=== PATIENT | male | born 1970 | race Caucasian/White ===

== ENCOUNTER 2023-02-12 12:40 | Outpatient (CLI) | payer OTHER, SELFPAY | END 2023-02-12 12:41 | disposition home or self-care (01) | LOC: FRMREF 12:40 | PROVIDERS: PCP Physician Assistant Medical; Visit Provider Physician Assistant Medical | DX: Z01.818 Encounter for other preprocedural examination (principal); I10 Essential (primary) hypertension | CPT/HCPCS: 80053 ==

== ENCOUNTER 2023-02-22 06:10 | Day surgery (SDC) | payer OTHER, SELFPAY ==
[2023-02-22] MEDS: BUPIVACAINE 0.5% 30 ML INJECTION (06:13)
[2023-02-22] MEDS: LACTATED RINGERS 1000 ML 1,000 ML 100 ML IV (06:15)
[2023-02-22 06:26] VITALS: BMI 36.4
[2023-02-22 06:31] VITALS: BP 140/106; PULSE 85; RESP 16; TEMP 36.4; O2SAT 94
[2023-02-22] MEDS: SODIUM CHLORIDE 0.9 % (FLUSH) 10 ML SYRINGE IVF (06:56)
[2023-02-22] MEDS: ETHYL CHLORIDE 1 APPLICATION 1 APPLIC TOPICAL (06:57)
[2023-02-22] MEDS: LIDOCAINE 2%-EPI 1:200,000 20 ML TOPICAL (06:59)
--- NOTE | 2023-02-22 07:15 | CRLHL7_ITS ---
For Patients: As a result of the Cures Act, medical imaging exams and procedure reports are released immediately into your electronic medical record. You may view this report before your referring provider. If you have questions, please contact your health care provider. Indication: LEFT FINGER DIP JOINT Arthrodesis Technique: Two fluoroscopic images of the left thumb. Fluoroscopic time 26.3 seconds. Comparison: None Findings/Impression: Fluoroscopic guidance for fusion across the thumb IP joint. Dictated by Ronnie Dominguez MD @ 02/22/2023 8:30:23 AM (Electronically Signed)
--- NOTE | 2023-02-22 07:15 | SUR.PREOP ---
SAME DAY SURGERY LOCAL INJECTION SITE VERIFICATION WAS PERFORMED BY SURGEON/PA AND PATIENT PRIOR TO LOCAL ANESTHETIC BEING INJECTED TO OPERATIVE SITE.[id number] [facility]
[2023-02-22] MEDS: CEFAZOLIN 2 GM in 0.9 % SODIUM CHLORIDE Mini-bag 100 ML IVPB (07:29)
[2023-02-22] MEDS: LIDOCAINE 1% 5 ml (pf) 5 ML VIAL INJECTION (07:35)
--- NOTE | 2023-02-22 08:17 | W.PM.H&PU ---
History & Physical Update History & Physical Update H&P Reviewed and patient assessed: No changes noted
--- NOTE | 2023-02-22 08:17 | PM.ORPRC ---
Procedure Note Date of procedure: 02/22/23 Procedure: PREOPERATIVE DIAGNOSIS: 1. Left index finger DIP joint osteoarthritis, primary, severe with ulnar subluxation and ulnar deviation and associated large osteophytes POSTOPERATIVE DIAGNOSIS: 1. 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 Left index finger DIP joint arthrodesis 2. 10987 - Intraoperative fluoroscopy use and interpretation. 3. Left index finger finger digital block for anesthetic SURGEON: Jake Gallagher MD. ENVIRONMENTAL ENGINEERING MANAGER: Jeff Roland Pac - Of note, an veterinary technician assistant was critical for this case to aid in patient positioning, tissue retraction, limb manipulation/positioning, finger manipulation/control, protection of critical structures, closure, and splinting. ANESTHESIA: Digital block for anesthetic plus MAC IMPLANTS: Synthes partially-threaded headless compression screw (2.0 mm) TOURNIQUET: 25 of digital tourni-cot with excellent capillary refill upon removal. COMPLICATIONS: None evident INDICATIONS: The patient is a pleasant 52-year-old male who has experienced left index finger deformity with angulation, subluxation of the DIP joint, pain, and dysfunction. Additionally, nonoperative management of been tried and failed. Thus surgery was indicated. DESCRIPTION OF PROCEDURE: Following a thorough discussion of risks, benefits, and alternatives consent was obtained and the operative digit(s) was marked. The patient was brought to the operating room and placed supine on the operating table after preoperative digital block was administered by nc in preop holding. 2 g IV Ancef was administered within 1 hour incision preoperatively. Proper time-out was performed identifying proper patient, site, and procedure. The operative extremity/digit was prepped and draped in the appropriate sterile fashion using ChloraPrep. The digit was exsanguinated and the tourniquet utilized on base of the digit. A squared 'C' incision was made on the dorsal aspect of the operative finger DIP joint. Sharp incision down through the skin & subcutaneous tissue allowed identification of the extensor tendon. This was divided transversely. It was tagged for later repair. We elevated the flaps proximally and distally being cautious particularly distally with the germinal matrix. The joint was entered, and effusion evacuated. The collateral ligaments were released with a 15 blade on both sides, and the volar condyles of the middle phalanx were rongeured off. Large dorsal osteophyte were also rongeured off. The calcified cartilage layer was excised with rongeur and high-speed bur creating a cup and cone formation to the middle phalanx and distal phalanx, respectively. This had excellent approximation then of the bony surfaces. Small drill holes were created within the distal phalanx base for bleeding purposes. A 0.8mm guide pin was passed in a antegrade fashion into the distal phalanx and confirmed on C-arm fluoroscopic imaging to be center center position within the phalanx. The pin was then reversed and passed retrograde into the middle phalanx. Again C-arm confirmed the pin to be within the center center position in the middle phalanx. Alignment of the finger was aimed for straight on the PA perspective and slight flexion on the lateral perspective. The screw was measured, and selected. The 1.6 mm drill bit was passed retrograde through the distal phalanx and into the middle phalanx towards the base. The screw was then selected and passed smoothly. It achieved excellent compression holding the arthrodesis site stable. At this stage, a thorough irrigation normal saline was performed. Tourniquet was released. Hemostasis achieved. Closure of the skin flaps performed with 4-0 nylon in interrupted fashion. Dressings were applied and a tube gauze bulky dressing was applied. PLAN: 1. Encourage elevation of the operative extremity. 2. Icing of the fingers and hand/wrist as tolerated/needed 3. Acetaminophen and/or oxycodone as needed for pain control. 4. Follow up with nursing visit in 2 days for wound check/dressing removal and Stax splint application. Then follow-up at the 2 week chad postop PA visit for suture removal. Then at the 6 week chad with myself.
[2023-02-22] MEDS: NEOMYCIN/BACITRACIN/POLYMYXIN B 1 APPLIC TOPICAL (08:18)
[2023-02-22 09:00] VITALS: BP 138/108; PULSE 88; RESP 16; TEMP 36.3; O2SAT 94
--- NOTE | 2023-02-22 09:00 | W.ANESCHARGE ---
Anesthesia Charges Start Date/Time Anesthesia Start Date: 02/22/23 Anesthesia Start Time: 07:15 Stop Date/Time Anesthesia Stop Date: 02/22/23 Anesthesia Stop Time: 08:55
[2023-02-22 09:15] VITALS: BP 140/106; PULSE 88; RESP 16; O2SAT 94
--- NOTE | 2023-02-22 09:44 | SUR.PHASEII ---
Made appointment for Pt to see Dr. Earl for severe sleep apnea on Mar 02 at 2;00 At [facility] explained to pt the need to have this done and he told me he will just cancel the appointment I told him that if could be life threatening He said he understood but doesn't have any vacation time to do it. His S.O. Shraddha was aware also and she said that they will try and work it out.
== END 2023-02-22 09:49 | disposition home or self-care (01) ==
PROVIDERS: PCP Physician Assistant Medical; Visit Provider Orthopaedic Surgery Sports Medicine
PROC: (CPT 26860; principal; 2023-02-22 07:15)
DX: M19.042 Primary osteoarthritis, left hand (principal); M24.842 Other specific joint derangements of left hand, not elsewhere classified; M25.742 Osteophyte, left hand
CPT/HCPCS: 26860; 01820; 73140; 76000; C1713; J0665; J0690; J2405; J2704; J3010; J7120

== ENCOUNTER 2023-03-01 07:31 | Outpatient (CLI) | payer OTHER, SELFPAY | END 2023-03-01 07:32 | disposition home or self-care (01) | LOC: NFLDREF 03-02 22:15 | PROVIDERS: PCP Physician Assistant Medical; Referring Provider Physician Assistant Medical; Visit Provider Physician Assistant Medical | DX: D69.6 Thrombocytopenia, unspecified (principal); Z13.6 Encounter for screening for cardiovascular disorders | CPT/HCPCS: 80061 ==

== ENCOUNTER 2024-03-31 13:20 | Outpatient (CLI) | payer OTHER, SELFPAY | END 2024-03-31 13:21 | disposition home or self-care (01) | LOC: NFLDREF 04-03 06:37 | PROVIDERS: PCP Physician Assistant Medical; Referring Provider Physician Assistant Medical; Visit Provider Physician Assistant Medical | DX: R79.89 Other specified abnormal findings of blood chemistry (principal); E78.5 Hyperlipidemia, unspecified; D69.6 Thrombocytopenia, unspecified; I10 Essential (primary) hypertension; Z12.5 Encounter for screening for malignant neoplasm of prostate; Z13.29 Encounter for screening for other suspected endocrine disorder | CPT/HCPCS: 80053; 80061; 80074; 84443; G0103 ==

== ENCOUNTER 2024-04-07 13:24 | Outpatient (CLI) | payer OTHER, SELFPAY | END 2024-04-07 13:25 | disposition home or self-care (01) | PROVIDERS: PCP Physician Assistant Medical; Visit Provider Physician Assistant Medical | DX: E78.5 Hyperlipidemia, unspecified (principal); R79.89 Other specified abnormal findings of blood chemistry | CPT/HCPCS: 80061; 82607; 82746; 84450; 84460 ==

== ENCOUNTER 2024-04-11 07:02 | Outpatient (CLI) | payer OTHER, SELFPAY ==
--- NOTE | 2024-04-11 07:15 | CRLHL7_ITS ---
For Patients: As a result of the Century Cures Act, medical imaging exams and procedure reports are released immediately into your electronic medical record. You may view this report before your referring provider. If you have questions, please contact your health care provider. INDICATION: ABNORMAL FINDINGS OF BLOOD CHEMISTRY COMPARISON: none TECHNIQUE: Real time serra scale imaging and color Doppler analysis was performed of the right upper quadrant. FINDINGS: The liver measures 23.8 cm. Liver echotexture is diffusely coarsened and increased. There is a normal appearance of the hepatic IVC and proximal abdominal aorta. There is no evidence of ascites. The gallbladder is of normal size and there is no evidence of intraluminal stones or sludge. The gallbladder wall measures 1 mm in thickness. The common bile duct is of normal size and measures 4 mm in diameter at the level of the armando hepatis. The pancreas appears normal. There is no evidence of a stone or hydronephrosis within the right kidney. The right kidney measures 12.7 cm in length. The main portal vein is patent with antegrade flow measuring 16.3 cm/second. Main portal vein measures 11 millimeters. IMPRESSION: Hepatomegaly with moderately severe hepatic steatosis. Dictated by Ronnie Dominguez MD @ 04/13/2024 7:14:08 AM (Electronically Signed)
== END 2024-04-11 07:03 | disposition home or self-care (01) ==
LOC: US 07:03
PROVIDERS: PCP Physician Assistant Medical; Visit Provider Physician Assistant Medical
DX: R79.89 Other specified abnormal findings of blood chemistry (principal); K76.0 Fatty (change of) liver, not elsewhere classified
CPT/HCPCS: 76705

== ENCOUNTER 2024-05-22 14:35 | Outpatient (CLI) | payer OTHER, SELFPAY ==
--- NOTE | 2024-05-22 15:00 | CRLHL7_ITS ---
For Patients: As a result of the Century Cures Act, medical imaging exams and procedure reports are released immediately into your electronic medical record. You may view this report before your referring provider. If you have questions, please contact your health care provider. INDICATION: Hepatomegaly. TECHNIQUE: CT chest, abdomen and pelvis acquired with 120 cc Isovue 370 IV contrast. COMPARISON: Ultrasound 04/11/2024. FINDINGS: CHEST Lungs and pleura: Lungs are clear. No suspicious nodules or infiltrates. No effusions, thickening, or pneumothorax. Heart and vasculature: Heart size is normal. Thoracic aorta and pulmonary artery are normal in caliber. Lymph node/mediastinum: No mediastinal, hilar, or axillary adenopathy. Chest wall: Normal. Bones: Mild/moderate thoracic spondylosis. No suspicious osseous lesion. Old left-sided rib fractures. ABDOMEN AND PELVIS: Liver: Moderate hepatic steatosis mild hepatomegaly. No suspicious hepatic lesion. Gallbladder and bile ducts: Unremarkable. Pancreas: Unremarkable. Spleen: Normal in caliber. No masses. Adrenal glands: Unremarkable. No masses. Kidneys: Right kidney normal. Ectopic, dysplastic pelvic left kidney. GI tract: No bowel obstruction or focal inflammation. Normal appendix. Vasculature: Unremarkable. Mesenteric arteries are patent. Lymph nodes: No lymphadenopathy. Omentum/peritoneum/retroperitoneum/abdominal wall: No masses or infiltration. No free air or significant free fluid. Pelvic organs: Unremarkable. Bones: Lumbar spondylosis IMPRESSION: 1. Hepatomegaly and moderate hepatic steatosis. No suspicious hepatic lesion. 2. Ectopic, dysplastic pelvic left kidney. Normal right kidney. Please note that all CT scans at this facility use dose modulation, iterative reconstruction, and/or weight-based dosing when appropriate to reduce radiation dose to as low as reasonably achievable. Dictated by Jay Matthews MD @ 05/23/2024 7:58:14 AM (Electronically Signed)
== END 2024-05-22 14:36 | disposition home or self-care (01) ==
PROVIDERS: PCP Physician Assistant Medical; Visit Provider Internal Medicine Hematology & Oncology
DX: R16.0 Hepatomegaly, not elsewhere classified (principal); K76.0 Fatty (change of) liver, not elsewhere classified; D69.6 Thrombocytopenia, unspecified
CPT/HCPCS: 71260; 74177; Q9967

== ENCOUNTER 2024-08-21 05:57 | Day surgery (SDC) | payer OTHER, SELFPAY ==
[2024-08-21] VITALS (12 sets, daily range): BP systolic 111–129; BP diastolic 74–85; PULSE 70–92; RESP 16; TEMP 36.4; O2SAT 94–98; BMI 35.2
[2024-08-21] MEDS: LIDOCAINE 1% MDV INJECTION (06:55)
[2024-08-21] MEDS: BUPIVACAINE 0.5% 30 ML INJECTION (06:55)
[2024-08-21] MEDS: ETHYL CHLORIDE 1 APPLICATION 1 APPLIC TOPICAL (06:55)
--- NOTE | 2024-08-21 12:23 | P.ORPRC_ITS ---
Procedure Note Date of procedure: 08/21/24 Procedure: PREOPERATIVE DIAGNOSIS: 1. Left dorsal thumb benign mass, slightly radial to the mid-dorsal line near the IP joint POSTOPERATIVE DIAGNOSIS: 1. Left dorsal thumb benign mass, slightly radial to the mid-dorsal line near the IP joint PROCEDURE: 1. Left dorsal thumb benign mass open excision SURGEON: Jake Gallagher MD. DIRECTOR OF EARLY CHILDHOOD: Jeff Roland PA-C - Of note, an reproductive healthcare assistant was critical for this case to aid in patient positioning, tissue retraction, limb manipulation/positioning, patient safety, & closure. ANESTHESIA: Local anesthetic (50:50 mixture of 1% lidocaine plain and 0.5% marcaine plain) EBL: 5 mL IMPLANTS: None TOURNIQUET: Digital tourni-cot (~20 minutes). COMPLICATIONS: None evident INDICATIONS: The patient is a pleasant 54-year-old male who noted a growth developing over the dorsal aspect of his left thumb near the IP joint just slightly radial to the dorsal midline region. This has progressively enlarged and become somewhat bothersome when he tries to put his hand in a pocket or when he has pressure on this area. This did appear to have benign features, but given his clinical picture and the fact that nonoperative management was unsuccessful, surgery is indicated for open mass excision. DESCRIPTION OF PROCEDURE: Following a thorough discussion of risks, benefits, and alternatives consent was obtained and the operative extremity was marked. The patient was brought to the operating room and placed supine on the operating table. No antibiotics were administered as this was planned to be a local case only. Proper time-out was performed identifying proper patient, site, and procedure. The operative extremity was prepped and draped in the appropriate sterile fashion using ChloraPrep. The limb was exsanguinated and the tourniquet inflated. A longitudinal incision was made overlying the radial edge of the mass extending proximally ~ 2 cm. We then made a transverse limb to this L-shaped incision over the distal aspect of the growth. The skin flap was elevated and extensor tendon was identified. Crossing veins were cauterized. Deep to the flap there appeared to be a small cystic structure just radial to the extensor tendon, which was excised with a combination of 15 blade scalpel, bipolar cautery, and tenotomy scissors. Thereafter, the skin was notably thickened immediately superficial to this same region. Thus, decision was made to ellipse out/excise the dermis over region measuring 1 x 1 cm. The proximal flap that had been created was mobile enough to span the excised tissues gap and allowed direct skin to skin closure/primary closure. The tissue was sent for permanent pathology. Thereafter, thorough irrigation normal saline was performed. Curette was also utilized to debride both the deep side of the skin flap and the superficial side of the deeper tissues including the extensor tendon. Thereafter, closure was performed with 4-0 nylon in interrupted fashion. The tourni-cot was removed and hemostasis confirmed. Soft dressings were applied, and the patient was awoken/transferred to the recovery room in stable condition. PLAN: 1. Encourage elevation of the operative extremity. 2. Range of motion of the operative extremity/digits as tolerated. 3. Ibuprofen, acetaminophen and/or oxycodone as needed for pain. 4. Follow up with PA visit in 12-16 days for wound check and suture removal.
== END 2024-08-21 08:24 | disposition home or self-care (01) ==
LOC: OR 05:58
PROVIDERS: PCP Physician Assistant Medical; Visit Provider Orthopaedic Surgery Sports Medicine
PROC: (CPT 26111; principal; 2024-08-21 07:15)
DX: R22.32 Localized swelling, mass and lump, left upper limb (principal); B07.8 Other viral warts
CPT/HCPCS: 26111; 88305; J2003; J0665

== ENCOUNTER 2024-08-24 13:05 | Outpatient (CLI) | payer OTHER, SELFPAY | END 2024-08-24 13:06 | disposition home or self-care (01) | LOC: NFLDREF 09-03 18:27 | PROVIDERS: PCP Physician Assistant Medical; Referring Provider Physician Assistant Medical; Visit Provider Internal Medicine Hematology & Oncology | DX: R16.0 Hepatomegaly, not elsewhere classified (principal); D69.6 Thrombocytopenia, unspecified | CPT/HCPCS: 82607 ==

== ENCOUNTER 2024-09-05 14:30 | Outpatient (RCR) | payer OTHER, SELFPAY ==
[2024-05-02 15:23] LABS: Hematocrit 43.6 % (37.0-53.0); Hemoglobin* 15.4 gm/dL (13.5-17.5); Immature Granulocytes Abs Auto 0.02 K/uL (0.00-0.30); Immature Granulocytes Pct Auto 0.3 %; Lymphocytes Absolute Auto 2.86 K/uL (0.90-2.90); Mean Corpuscular HGB Conc 35 gm/dL (32-36); Mean Corpuscular Hemoglobin 31 pg (26-34); Mean Corpuscular Volume 87 fL (80-100); RDW Coefficient of Variation % 12.0 % (11.5-15.5); Red Blood Count 5.00 m/uL (4.30-5.90); White Blood Count* 7.94 K/uL (4.50-11.00)
[2024-05-02 15:27] LABS: Slide Review Reflex No
[2024-05-02 15:35] LABS: Albumin* 4.7 g/dL (3.3-5.0)
[2024-05-02 15:37] LABS: Aspartate Amino Transferase* 34 U/L (12-35); Bilirubin Direct* 0.3 mg/dL (0.0-0.5); Bilirubin Total* 0.4 mg/dL (0.1-1.5); Total Protein* 7.6 g/dL (6.0-8.3)
[2024-05-02 15:38] LABS: Alanine Aminotransferase* 64 U/L (4-50); Alkaline Phosphatase* 63 U/L (40-150)
[2024-05-02 16:59] LABS: HIV 1/2/P24 Combo Screen* Negative (Negative)
[2024-05-04 14:30] LABS: Copper, Serum/Plasma 94.0 ug/dL (70.0-140.0)
--- NOTE | 2024-05-12 09:09 | ONC.NURNOTE ---
[facility] received a message from patient stating that insurance does not cover a 90 day supply of his B12. Research Food Technologist left message to determine if he would like to pick this up OTC, or if we need to call the pharmacy for coverage reasons to change fill to 30 days with 11 refills.
--- NOTE | 2024-05-12 11:29 | ONC.NURNOTE ---
Patient called today stating that his insurance won't cover a 90 day supply of his new prescription if Vitamin B12 and is requesting to have it changed to a 30 day supply. Patient called back shortly after to also update us that [facility] does not have the chewable tablets and asked to have it changed. RN asked patient if he had another pharmacy he uses to try to see if they have the chewable form otherwise RN could check with Dr. Ireland Wednesday to see if the prescription can be changed. Patient requested to send prescription to [facility] [address] to see if they had the chewable form. Advised patient to call if he has further issues. New prescription sent for 30 and chewable to [facility].
== END 2024-10-29 23:59 | disposition home or self-care (01) ==
LOC: CCIC 14:30
PROVIDERS: PCP Physician Assistant Medical; Visit Provider Internal Medicine Hematology & Oncology
DX: D69.6 Thrombocytopenia, unspecified (principal); R79.89 Other specified abnormal findings of blood chemistry
CPT/HCPCS: 36415; 80076; 82525; 82728; 83615; 84443; 85025; 86703; 99202; 99204; 99213; 99214; G0463

== ENCOUNTER 2024-12-06 15:01 | Outpatient (CLI) | payer OTHER, SELFPAY | END 2024-12-06 15:02 | disposition home or self-care (01) | LOC: NFLDREF 12-11 19:14 | PROVIDERS: PCP Physician Assistant Medical; Referring Provider Physician Assistant Medical; Visit Provider Internal Medicine Hematology & Oncology | DX: R16.0 Hepatomegaly, not elsewhere classified (principal); D69.6 Thrombocytopenia, unspecified | CPT/HCPCS: 80076 ==

== ENCOUNTER 2025-03-05 15:04 | Outpatient (CLI) | payer OTHER, SELFPAY | END 2025-03-05 15:05 | disposition home or self-care (01) | LOC: NFLDREF 03-15 17:01 | PROVIDERS: PCP Physician Assistant Medical; Referring Provider Physician Assistant Medical; Visit Provider Physician Assistant Medical | DX: I10 Essential (primary) hypertension (principal); E78.2 Mixed hyperlipidemia; E11.9 Type 2 diabetes mellitus without complications; Z13.9 Encounter for screening, unspecified | CPT/HCPCS: 80061; 84443; G0103 ==